=== PATIENT | male | born 1950 | race Caucasian/White ===

== ENCOUNTER 2023-05-01 10:43 | Day surgery (SDC) | payer MEDICARE ==
[~2023-05-01] VITALS: Ht 182.9 cm; Wt 84.3 kg
[2023-05-01] MEDS ORDERED: CEPH500C (11:15)
[2023-05-01] MEDS ORDERED: OXYC1TAB23 (11:15)
[2023-05-01] MEDS ORDERED: BACITRACIN OINTMENT 30GM TUBE As Ordered ONE (12:04)
[2023-05-01] MEDS ORDERED: ceFAZolin 2 GM/D5W 50 ML IV BAG As Ordered ONE (12:20)
[2023-05-01] MEDS ORDERED: LIDOCAINE 2% 100MG/5ML SDV (FOR ANES.) As Ordered ONE (12:42)
[2023-05-01] MEDS ORDERED: ePHEDrine SULFATE 25 MG/5 ML(5MG/ML) SYRINGE As Ordered ONE (12:42)
[2023-05-01] MEDS ORDERED: propofoL 200 MG/20 ML VIAL As Ordered ONE (12:42)
[2023-05-01] MEDS ORDERED: fentaNYL 100 MCG/2 ML INJECTION As Ordered ONE (12:42)
[2023-05-01] MEDS ORDERED: ONDANSETRON 4MG 2ML VIAL As Ordered ONE (12:42)
[2023-05-01] MEDS ORDERED: MIDAZOLAM INJ 2MG/2ML VIAL As Ordered ONE (12:42)
[2023-05-01] MEDS ORDERED: CEPH500C PO (14:12)
[2023-05-01 15:17] VITALS: BP 128/71; TEMP 97.6; O2SAT 97
== END 2023-05-01 15:31 | disposition home or self-care (01) ==
LOC: M SDC 10:43
PROVIDERS: ATTEND Orthopaedic Surgery Hand Surgery
DX: S62.631B Displaced fracture of distal phalanx of left index finger, initial encounter for open fracture (principal); W31.2XXA Contact with powered woodworking and forming machines, initial encounter; Y93.9 Activity, unspecified; Y92.9 Unspecified place or not applicable; Y99.9 Unspecified external cause status
CPT/HCPCS: 11012; 26350; 26765; 76000; C1713; J0665; J0690; J1100; J2250; J2405; J3010

== ENCOUNTER → 2023-05-14 | Outpatient (CLI) | payer MEDICARE ==
[~2023-05-14] MED LIST: CEPH500C; CEPH500C PO; OXYC1TAB23
== END ==
LOC: M SOG 10:40
PROVIDERS: ATTEND Physician Assistant
DX: M79.645 Pain in left finger(s) (principal); Z87.81 Personal history of (healed) traumatic fracture

== ENCOUNTER → 2023-06-15 | Outpatient (CLI) | payer MEDICARE | LOC: M SOG 13:23 | PROVIDERS: ATTEND Physician Assistant | DX: M79.645 Pain in left finger(s) (principal) ==